=== PATIENT | female | born 1960 | race Caucasian/White ===

== ENCOUNTER 2023-08-19 06:19 | Day surgery (SDC) | payer OTHER ==
[~2023-08-19] VITALS: Ht 162 cm; Wt 59.9 kg
[2023-08-19] MEDS ORDERED: MIDAZOLAM HCL 5 MG/5 ML VIAL ONE (07:24)
[2023-08-19] MEDS ORDERED: MEPERIDINE 100 MG INJ. 100 MG/ML VIAL ONE (07:24)
[2023-08-19 08:51] VITALS: O2SAT 95
[2023-08-19] MEDS ORDERED: fentaNYL CITRATE/PF 100 MCG/2 ML AMP ONE (13:55)
[2023-08-19 14:06] VITALS: BP_SYST 82; PULSE 55; RESP 18
== END 2023-08-19 10:45 | disposition home or self-care (01) ==
LOC: SDS 06:19 → SMU 06:20 → SDS 10:45
PROVIDERS: ATTEND Internal Medicine Gastroenterology
DX: K21.9 Gastro-esophageal reflux disease without esophagitis (principal); K29.50 Unspecified chronic gastritis without bleeding; K31.A0 Gastric intestinal metaplasia, unspecified; K25.9 Gastric ulcer, unspecified as acute or chronic, without hemorrhage or perforation; E78.5 Hyperlipidemia, unspecified; M19.90 Unspecified osteoarthritis, unspecified site; Z90.89 Acquired absence of other organs; Z79.899 Other long term (current) drug therapy; Z80.0 Family history of malignant neoplasm of digestive organs
CPT/HCPCS: 43239; 87081; 36415; 88305; 88312; 88313; G0378; J2250; J3010; J2175